=== PATIENT | female | born 1990 | race African-American/Black ===

== ENCOUNTER 2018-07-16 01:17 | Emergency (ER) | payer OTHER ==
[~2018-07-16] VITALS: Ht 157.5 cm; Wt 99.8 kg
== END 2018-07-16 14:33 | disposition home or self-care (01) ==
LOC: ER 01:17
DX: J11.1 Influenza due to unidentified influenza virus with other respiratory manifestations (principal); J40 Bronchitis, not specified as acute or chronic

== ENCOUNTER 2021-07-11 21:25 | Emergency (ER) | payer OTHER ==
[~2021-07-11] VITALS: Ht 154.9 cm; Wt 95.3 kg
[2021-07-12] MEDS ORDERED: ZITHROMAX500 MG PO (01:49)
[2021-07-12] MEDS ORDERED: ALBUTEROL2.5 MG/3 M IH (01:49)
[2021-07-12] MEDS ORDERED: ZYNCOF 20-400120 ML PO (01:49)
[2021-07-12] MEDS ORDERED: SYMBICORT 16010.2 GM IH (01:49)
== END 2021-07-12 01:58 ==
LOC: ER 21:25
DX: J45.998 Other asthma (principal); Z03.818 Encounter for observation for suspected exposure to other biological agents ruled out

== ENCOUNTER 2022-05-10 08:34 | Outpatient (CLI) | payer OTHER ==
[~2022-05-10 08:34] MED LIST: ALBUTEROL2.5 MG/3 M IH; SYMBICORT 16010.2 GM IH; ZITHROMAX500 MG PO; ZYNCOF 20-400120 ML PO
== END 2022-05-10 09:19 | disposition home or self-care (01) ==
LOC: PRENATAL 08:34
PROVIDERS: ATTEND Obstetrics & Gynecology Maternal & Fetal Medicine
DX: O36.80X0 Pregnancy with inconclusive fetal viability, not applicable or unspecified (principal); Z36.0 Encounter for antenatal screening for chromosomal anomalies; O99.210 Obesity complicating pregnancy, unspecified trimester; Z3A.13 13 weeks gestation of pregnancy

== ENCOUNTER 2022-07-02 16:52 | Emergency (ER) | payer OTHER ==
[~2022-07-02] VITALS: Ht 157.5 cm; Wt 110.2 kg
== END 2022-07-02 20:48 | disposition home or self-care (01) ==
LOC: ER 16:52
DX: O99.512 Diseases of the respiratory system complicating pregnancy, second trimester (principal); Z3A.21 21 weeks gestation of pregnancy; Z20.822 Contact with and (suspected) exposure to COVID-19; J20.9 Acute bronchitis, unspecified

== ENCOUNTER 2022-07-03 07:48 | Outpatient (CLI) | payer OTHER | END 2022-07-03 09:15 | disposition home or self-care (01) | LOC: PRENATAL 07:48 | PROVIDERS: ATTEND Obstetrics & Gynecology Maternal & Fetal Medicine | DX: O26.849 Uterine size-date discrepancy, unspecified trimester (principal); Z3A.30 30 weeks gestation of pregnancy; Z3A.21 21 weeks gestation of pregnancy ==

== ENCOUNTER 2022-09-25 09:31 | Emergency (ER) | payer OTHER ==
[~2022-09-25] VITALS: Ht 162.6 cm; Wt 113.9 kg
[2022-09-25] MEDS ORDERED: PRIMACARE SOFT1 EACH PO (10:13)
[2022-09-25] MEDS ORDERED: OSEL75CA PO (13:46)
[2022-09-25] MEDS ORDERED: MACROBID 100 M100 MG PO (13:46)
== END 2022-09-25 13:56 | disposition home or self-care (01) ==
LOC: ER 09:31
DX: O23.43 Unspecified infection of urinary tract in pregnancy, third trimester (principal); N39.0 Urinary tract infection, site not specified; Z3A.33 33 weeks gestation of pregnancy; J10.1 Influenza due to other identified influenza virus with other respiratory manifestations; Z20.822 Contact with and (suspected) exposure to COVID-19

== ENCOUNTER 2022-10-23 12:47 | Outpatient (CLI) | payer OTHER ==
[~2022-10-23 12:47] MED LIST changes: +MACROBID 100 M100 MG PO; +OSEL75CA PO; +PRIMACARE SOFT1 EACH PO
== END 2022-10-23 14:36 | disposition home or self-care (01) ==
LOC: PRENATAL 12:47
PROVIDERS: ATTEND Obstetrics & Gynecology Maternal & Fetal Medicine
DX: O36.8199 Decreased fetal movements, unspecified trimester, other fetus (principal)

== ENCOUNTER 2023-03-23 10:46 | Emergency (ER) | payer OTHER ==
[~2023-03-23] VITALS: Ht 152.4 cm; Wt 108.9 kg
== END 2023-03-23 13:12 | disposition home or self-care (01) ==
LOC: ER 10:46
DX: K52.89 Other specified noninfective gastroenteritis and colitis (principal)

== ENCOUNTER 2023-03-27 19:08 | Emergency (ER) | payer OTHER ==
[~2023-03-27] VITALS: Ht 152.4 cm; Wt 108.9 kg
== END 2023-03-27 21:34 | disposition home or self-care (01) ==
LOC: ER 19:08
DX: G43.809 Other migraine, not intractable, without status migrainosus (principal)

== ENCOUNTER 2023-10-20 08:34 | Emergency (ER) | payer OTHER ==
[~2023-10-20] VITALS: Ht 157.5 cm; Wt 117.9 kg
[2023-10-20 09:25] LABS: HEMATOCRIT 40.7 % (36.0-45.00); HEMOGLOBIN 13.7 g/dL (12.0-15.00); MEAN CELL VOLUME 78.9 fL (80.00-100.00); MEAN CORPUSCULAR HEMOGLOBIN 26.5 pg (27.00-32.0); MEAN CORPUSCULAR HGB CONC 33.5 g/dl (32.0-36.0); PLATELET COUNT 233 K/uL (150-450); RED BLOOD COUNT 5.16 M/uL (4.00-6.00); RED CELL DISTRIBUTION WIDTH 13.6 % (11.5-14.5)
[2023-10-20 09:37] LABS: PH,URINE 6.5 (5.0-8.0); URINE APPEARANCE Clear; URINE BILIRRUBIN Negative (NEGATIVE); URINE BLOOD Negative; URINE COLOR Yellow; URINE GLUCOSE Negative (NEGATIVE); URINE LEUKOCYTE Negative; URINE NITRATE Negative; URINE PROTEIN Negative (NEGATIVE)
[2023-10-20 09:42] LABS: URINE BACTERIA 42.8 uL (0.0-1933); URINE EPITHELIAL CELLS 11.2 uL (0.0-38.8); URINE RBC 61.5 uL (0.0-20.8)
[2023-10-20 10:03] LABS: CALCIUM 8.8 mg/dL (8.5-10.1); CREATININE SERUM 0.66 mg/dL (0.55-1.02); GFR 104.46; POTASSIUM 3.99 mEq/L (3.5-5.1)
== END 2023-10-20 13:19 | disposition home or self-care (01) ==
LOC: ER 08:34
PROVIDERS: Emergency Medicine
DX: R53.81 Other malaise (principal); R10.9 Unspecified abdominal pain

== ENCOUNTER 2024-09-22 09:41 | Emergency (ER) | payer OTHER ==
[~2024-09-22] VITALS: Ht 157.5 cm; Wt 1130.8 kg
[2024-09-22 10:19] VITALS: BP 143/84; O2SAT 99
[2024-09-22] MEDS ORDERED: ONDANSETRON 4 MG TAB.RAPDIS PO ONE (13:45)
[2024-09-22] MEDS ORDERED: LACTOBACILLUS ACIDOPHILUS 1 CAP CAP PO ONE (13:45)
[2024-09-22] MEDS ORDERED: FAMOtidine 20 MG TABLET PO ONE (13:45)
[2024-09-22 14:24] LABS: HEMATOCRIT 39.9 % (36.0-45.00); HEMOGLOBIN 13.3 g/dL (12.0-15.00); MEAN CELL VOLUME 79.9 fL (80.00-100.00); MEAN CORPUSCULAR HEMOGLOBIN 26.7 pg (27.00-32.0); MEAN CORPUSCULAR HGB CONC 33.4 g/dl (32.0-36.0); PLATELET COUNT 265 K/uL (150-450); RED BLOOD COUNT 4.99 M/uL (4.00-6.00); RED CELL DISTRIBUTION WIDTH 14.3 % (11.5-14.5)
[2024-09-22 14:43] LABS: CALCIUM 9.3 mg/dL (8.5-10.1); CREATININE SERUM 0.64 mg/dL (0.55-1.02); GFR 107.54; POTASSIUM 4.13 mEq/L (3.5-5.1)
[2024-09-22] MEDS ORDERED: INTESTINEX680 M1 PO (15:43)
[2024-09-22] MEDS ORDERED: PEPCID AC20 MG PO (15:43)
[2024-09-22] MEDS ORDERED: CIPRO500 MG PO (15:43)
== END 2024-09-22 15:59 | disposition home or self-care (01) ==
LOC: ER 09:43
PROVIDERS: General Practice
DX: K52.9 Noninfective gastroenteritis and colitis, unspecified (principal)